=== PATIENT | male | born 1975 | race Two or more races ===

== ENCOUNTER → 2017-05-22 | Outpatient (CLI) | payer BC ==
[2017-05-22 16:08] LABS: ALANINE AMINOTRANSFERASE 64 U/L (21-72); ASPARTATE AMINO TRANSFERASE 37 U/L (17-59)
== END ==
LOC: OD 14:49
PROVIDERS: ATTEND Podiatrist Foot Surgery
DX: B35.1 Tinea unguium (principal)
CPT/HCPCS: 36415; 84450; 84460

== ENCOUNTER → 2017-08-06 | Outpatient (CLI) | payer BC ==
[2017-08-06 15:36] LABS: ALANINE AMINOTRANSFERASE 61 U/L (21-72); ASPARTATE AMINO TRANSFERASE 36 U/L (17-59)
== END ==
LOC: OD 14:33
PROVIDERS: ATTEND Podiatrist Foot Surgery
DX: B35.1 Tinea unguium (principal)
CPT/HCPCS: 36415; 84450; 84460